=== PATIENT | male | born 1960 | race Caucasian/White ===

== ENCOUNTER 2017-09-09 18:30 | Inpatient (IN) | payer MEDICAID ==
[2017-09-09] MEDS ORDERED: Ondansetron 4 MG/2 ML SDV IVPUSH ONE (19:15)
[2017-09-09] MEDS: Sodium Chloride 0.9% 1,000 ML IV SCH ×2 (19:32→20:28)
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
[2017-09-09] MEDS: NS + KCl 20mEq/L 1,000 ML IV SCH ×2 (20:28→23:52)
[2017-09-09] MEDS ORDERED: Bacitracin Oint 1 GM U/D Packet TOP ONE (21:24)
[2017-09-09] MEDS ORDERED: Sodium Chloride 0.9% 1,000 ML IV SCH (21:45)
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
[2017-09-09] MEDS ORDERED: Norepinephrine 4 MG/4 ML SDV ONE (23:46)
[2017-09-10] MEDS: Dextrose 5%-0.9% NaCl 1,000 ML IV SCH ×2 (03:05→15:40)
[2017-09-10] MEDS ORDERED: Diazepam 5 MG Tab PO PRN (05:11)
[2017-09-10] MEDS: LORazepam 1 MG Tab PO PRN ×4 (09:40→14:30)
[2017-09-10] MEDS ORDERED: Thiamine 100 MG in Sodium Chloride 0.9% 50 ML IV ONE (10:00)
[2017-09-10] MEDS ORDERED: Acetaminophen 325 MG Tab PO PRN (13:04)
[2017-09-10] MEDS: Acetaminophen 325 MG Tab PO PRN ×2 (13:11→17:05)
[2017-09-10] MEDS: LORazepam 2 MG/ML SDV IV PRN ×6 (15:39→20:00)
[2017-09-10] MEDS: Nicotine 21 MG/24 Hr Patch TRDERM SCH (16:35)
--- NOTE | 2017-09-10 17:27 | PCM.PN ---
- General Info Date of Service: 09/10/17 Functional Status: Reports: Pain Controlled - Review of Systems HEENT: Reports: No Symptoms Pulmonary: Reports: No Symptoms Cardiovascular: Reports: No Symptoms Gastrointestinal: Reports: No Symptoms Genitourinary: Reports: No Symptoms Musculoskeletal: Reports: No Symptoms Skin: Reports: No Symptoms Neurological: Reports: Confusion, Gait Disturbance Psychiatric: Reports: Anxiety, Agitation - Patient Data Vitals - Most Recent: Last Vital Signs Temp 100.2 F 09/10/17 17:05 Pulse 119 H 09/10/17 17:00 Resp 12 09/10/17 17:00 BP 151/92 H 09/10/17 13:00 Pulse Ox 92 L 09/10/17 17:00 Weight - Most Recent: 191 lb 12.835 oz I&O - Last 24 Hours: Intake & Output 09/10/17 09/10/17 09/10/17 06:59 14:59 22:59 Intake Total 4260 240 Output Total 2100 Balance 2160 240 Lab Results Last 24 Hours: Laboratory Results - last 24 hr 09/09/17 09/09/17 09/09/17 Range/Units 19:05 19:05 19:05 WBC 15.1 H (4.5-11.0) K/uL RBC 5.19 (4.30-5.90) M/uL Hgb 15.7 H (12.0-15.0) g/dL Hct 43.7 (40.0-54.0) % MCV 84 (80-98) fL MCH 30 (27-31) pg MCHC 36 (32-36) % Plt Count 302 (150-400) K/uL Neut % (Auto) 80 H (36-66) % Lymph % (Auto) 10 L (24-44) % [place] % (Auto) 10 H (2-6) % Eos % (Auto) 0 L (2-4) % Baso % (Auto) 0 (0-1) % Sodium 135 L (140-148) mmol/L Potassium 3.1 L (3.6-5.2) mmol/L Chloride 95 L (100-108) mmol/L Carbon Dioxide 25 (21-32) mmol/L Anion Gap 18.1 H (5.0-14.0) mmol/L BUN 20 H (7-18) mg/dL Creatinine 1.9 H (0.8-1.3) mg/dL Est Cr Clr Drug Dosing 40.50 mL/min Estimated GFR (MDRD) 36 L (>60) Glucose 122 H (74-106) mg/dL Lactic Acid (0.4-2.0) mmol/L Calcium 7.8 L (8.5-10.1) mg/dL Total Bilirubin 0.6 (0.2-1.0) mg/dL AST 48 H (15-37) U/L ALT 42 (12-78) U/L Alkaline Phosphatase 113 (46-116) U/L Creatine Kinase (39-308) U/L Total Protein 6.3 L (6.4-8.2) g/dL Albumin 3.3 L (3.4-5.0) g/dL Globulin 3.0 (2.3-3.5) g/dL Albumin/Globulin Ratio 1.1 L (1.2-2.2) Lipase (73-393) U/L Urine Color Urine Appearance Urine pH (4.5-8.0) Ur Specific [employer] (1.008-1.030) Urine Protein (NEGATIVE) mg/dL Urine Glucose (UA) (NEGATIVE) mg/dL Urine Ketones (NEGATIVE) mg/dL Urine Occult Blood (NEGATIVE) Urine Nitrite (NEGAITVE) Urine Bilirubin (NEGATIVE) Urine Urobilinogen (NORMAL) mg/dL Ur Leukocyte Esterase (NEGATIVE) Urine RBC (0-5) Urine WBC (0-5) Ur Epithelial Cells Amorphous Sediment Urine Bacteria Urine Mucus Urine Opiates Screen (NEGATIVE) Ur Oxycodone Screen (NEGATIVE) Urine Methadone Screen (NEGATIVE) Ur Propoxyphene Screen (NEGATIVE) Ur Barbiturates Screen (NEGATIVE) Ur Tricyclics Screen (NEGATIVE) Ur Phencyclidine Scrn (NEGATIVE) Ur Amphetamine Screen (NEGATIVE) U Methamphetamines Scrn (NEGATIVE) Urine MDMA Screen (NEGATIVE) U Benzodiazepines Scrn (NEGATIVE) U Cocaine Metab Screen (NEGATIVE) U Marijuana (THC) Screen (NEGATIVE) Ethyl Alcohol 360 mg/dL 09/09/17 09/09/17 09/09/17 Range/Units 20:50 21:00 21:38 WBC (4.5-11.0) K/uL RBC (4.30-5.90) M/uL Hgb (12.0-15.0) g/dL Hct (40.0-54.0) % MCV (80-98) fL MCH (27-31) pg MCHC (32-36) % Plt Count (150-400) K/uL Neut % (Auto) (36-66) % Lymph % (Auto) (24-44) % [place] % (Auto) (2-6) % Eos % (Auto) (2-4) % Baso % (Auto) (0-1) % Sodium (140-148) mmol/L Potassium (3.6-5.2) mmol/L Chloride (100-108) mmol/L Carbon Dioxide (21-32) mmol/L Anion Gap (5.0-14.0) mmol/L BUN (7-18) mg/dL Creatinine (0.8-1.3) mg/dL Est Cr Clr Drug Dosing mL/min Estimated GFR (MDRD) (>60) Glucose (74-106) mg/dL Lactic Acid 4.7 H (0.4-2.0) mmol/L Calcium (8.5-10.1) mg/dL Total Bilirubin (0.2-1.0) mg/dL AST (15-37) U/L ALT (12-78) U/L Alkaline Phosphatase (46-116) U/L Creatine Kinase (39-308) U/L Total Protein (6.4-8.2) g/dL Albumin (3.4-5.0) g/dL Globulin (2.3-3.5) g/dL Albumin/Globulin Ratio (1.2-2.2) Lipase 215 (73-393) U/L Urine Color Yellow Urine Appearance Slightly cloudy Urine pH 6.0 (4.5-8.0) Ur Specific [employer] 1.020 (1.008-1.030) Urine Protein 30 H (NEGATIVE) mg/dL Urine Glucose (UA) Normal (NEGATIVE) mg/dL Urine Ketones Negative (NEGATIVE) mg/dL Urine Occult Blood Large (NEGATIVE) Urine Nitrite Negative (NEGAITVE) Urine Bilirubin Negative (NEGATIVE) Urine Urobilinogen Normal (NORMAL) mg/dL Ur Leukocyte Esterase Negative (NEGATIVE) Urine RBC 30-40 H (0-5) Urine WBC 0-5 (0-5) Ur Epithelial Cells Few Amorphous Sediment Few Urine Bacteria Moderate Urine Mucus Moderate Urine Opiates Screen (NEGATIVE) Ur Oxycodone Screen (NEGATIVE) Urine Methadone Screen (NEGATIVE) Ur Propoxyphene Screen (NEGATIVE) Ur Barbiturates Screen (NEGATIVE) Ur Tricyclics Screen (NEGATIVE) Ur Phencyclidine Scrn (NEGATIVE) Ur Amphetamine Screen (NEGATIVE) U Methamphetamines Scrn (NEGATIVE) Urine MDMA Screen (NEGATIVE) U Benzodiazepines Scrn (NEGATIVE) U Cocaine Metab Screen (NEGATIVE) U Marijuana (THC) Screen (NEGATIVE) Ethyl Alcohol mg/dL 09/09/17 09/09/17 09/10/17 Range/Units 21:38 22:27 04:05 WBC 8.8 (4.5-11.0) K/uL RBC 4.63 (4.30-5.90) M/uL Hgb 13.9 (12.0-15.0) g/dL Hct 39.4 L (40.0-54.0) % MCV 85 (80-98) fL MCH 30 (27-31) pg MCHC 35 (32-36) % Plt Count 232 (150-400) K/uL Neut % (Auto) 62 (36-66) % Lymph % (Auto) 23 L (24-44) % [place] % (Auto) 14 H (2-6) % Eos % (Auto) 1 L (2-4) % Baso % (Auto) 0 (0-1) % Sodium (140-148) mmol/L Potassium (3.6-5.2) mmol/L Chloride (100-108) mmol/L Carbon Dioxide (21-32) mmol/L Anion Gap (5.0-14.0) mmol/L BUN (7-18) mg/dL Creatinine (0.8-1.3) mg/dL Est Cr Clr Drug Dosing mL/min Estimated GFR (MDRD) (>60) Glucose (74-106) mg/dL Lactic Acid (0.4-2.0) mmol/L Calcium (8.5-10.1) mg/dL Total Bilirubin (0.2-1.0) mg/dL AST (15-37) U/L ALT (12-78) U/L Alkaline Phosphatase (46-116) U/L Creatine Kinase 515 H (39-308) U/L Total Protein (6.4-8.2) g/dL Albumin (3.4-5.0) g/dL Globulin (2.3-3.5) g/dL Albumin/Globulin Ratio (1.2-2.2) Lipase (73-393) U/L Urine Color Urine Appearance Urine pH (4.5-8.0) Ur Specific [employer] (1.008-1.030) Urine Protein (NEGATIVE) mg/dL Urine Glucose (UA) (NEGATIVE) mg/dL Urine Ketones (NEGATIVE) mg/dL Urine Occult Blood (NEGATIVE) Urine Nitrite (NEGAITVE) Urine Bilirubin (NEGATIVE) Urine Urobilinogen (NORMAL) mg/dL Ur Leukocyte Esterase (NEGATIVE) Urine RBC (0-5) Urine WBC (0-5) Ur Epithelial Cells Amorphous Sediment Urine Bacteria Urine Mucus Urine Opiates Screen Negative (NEGATIVE) Ur Oxycodone Screen Negative (NEGATIVE) Urine Methadone Screen Negative (NEGATIVE) Ur Propoxyphene Screen Negative (NEGATIVE) Ur Barbiturates Screen Negative (NEGATIVE) Ur Tricyclics Screen Positive H (NEGATIVE) Ur Phencyclidine Scrn Negative (NEGATIVE) Ur Amphetamine Screen Positive H (NEGATIVE) U Methamphetamines Scrn Positive H (NEGATIVE) Urine MDMA Screen Positive H (NEGATIVE) U Benzodiazepines Scrn Positive H (NEGATIVE) U Cocaine Metab Screen Negative (NEGATIVE) U Marijuana (THC) Screen Negative (NEGATIVE) Ethyl Alcohol mg/dL 09/10/17 09/10/17 09/10/17 Range/Units 04:05 05:15 05:16 WBC (4.5-11.0) K/uL RBC (4.30-5.90) M/uL Hgb (12.0-15.0) g/dL Hct (40.0-54.0) % MCV (80-98) fL MCH (27-31) pg MCHC (32-36) % Plt Count (150-400) K/uL Neut % (Auto) (36-66) % Lymph % (Auto) (24-44) % [place] % (Auto) (2-6) % Eos % (Auto) (2-4) % Baso % (Auto) (0-1) % Sodium 140 (140-148) mmol/L Potassium 3.4 L (3.6-5.2) mmol/L Chloride 105 (100-108) mmol/L Carbon Dioxide 21 (21-32) mmol/L Anion Gap 17.4 H (5.0-14.0) mmol/L BUN 14 (7-18) mg/dL Creatinine 1.0 (0.8-1.3) mg/dL Est Cr Clr Drug Dosing 76.95 mL/min Estimated GFR (MDRD) > 60 (>60) Glucose 92 (74-106) mg/dL Lactic Acid (0.4-2.0) mmol/L Calcium 6.9 L* (8.5-10.1) mg/dL Total Bilirubin (0.2-1.0) mg/dL AST 39 H (15-37) U/L ALT (12-78) U/L Alkaline Phosphatase 106 (46-116) U/L Creatine Kinase (39-308) U/L Total Protein (6.4-8.2) g/dL Albumin 2.7 L (3.4-5.0) g/dL Globulin (2.3-3.5) g/dL Albumin/Globulin Ratio (1.2-2.2) Lipase (73-393) U/L Urine Color Urine Appearance Urine pH (4.5-8.0) Ur Specific [employer] (1.008-1.030) Urine Protein (NEGATIVE) mg/dL Urine Glucose (UA) (NEGATIVE) mg/dL Urine Ketones (NEGATIVE) mg/dL Urine Occult Blood (NEGATIVE) Urine Nitrite (NEGAITVE) Urine Bilirubin (NEGATIVE) Urine Urobilinogen (NORMAL) mg/dL Ur Leukocyte Esterase (NEGATIVE) Urine RBC (0-5) Urine WBC (0-5) Ur Epithelial Cells Amorphous Sediment Urine Bacteria Urine Mucus Urine Opiates Screen (NEGATIVE) Ur Oxycodone Screen (NEGATIVE) Urine Methadone Screen (NEGATIVE) Ur Propoxyphene Screen (NEGATIVE) Ur Barbiturates Screen (NEGATIVE) Ur Tricyclics Screen (NEGATIVE) Ur Phencyclidine Scrn (NEGATIVE) Ur Amphetamine Screen (NEGATIVE) U Methamphetamines Scrn (NEGATIVE) Urine MDMA Screen (NEGATIVE) U Benzodiazepines Scrn (NEGATIVE) U Cocaine Metab Screen (NEGATIVE) U Marijuana (THC) Screen (NEGATIVE) Ethyl Alcohol mg/dL 18 09/10/17 Range/Units 05:18 12:57 WBC (4.5-11.0) K/uL RBC (4.30-5.90) M/uL Hgb (12.0-15.0) g/dL Hct (40.0-54.0) % MCV (80-98) fL MCH (27-31) pg MCHC (32-36) % Plt Count (150-400) K/uL Neut % (Auto) (36-66) % Lymph % (Auto) (24-44) % [place] % (Auto) (2-6) % Eos % (Auto) (2-4) % Baso % (Auto) (0-1) % Sodium (140-148) mmol/L Potassium (3.6-5.2) mmol/L Chloride (100-108) mmol/L Carbon Dioxide (21-32) mmol/L Anion Gap (5.0-14.0) mmol/L BUN (7-18) mg/dL Creatinine (0.8-1.3) mg/dL Est Cr Clr Drug Dosing mL/min Estimated GFR (MDRD) (>60) Glucose (74-106) mg/dL Lactic Acid 2.7 H (0.4-2.0) mmol/L Calcium (8.5-10.1) mg/dL Total Bilirubin 0.8 (0.2-1.0) mg/dL AST (15-37) U/L ALT (12-78) U/L Alkaline Phosphatase (46-116) U/L Creatine Kinase (39-308) U/L Total Protein 5.3 L (6.4-8.2) g/dL Albumin (3.4-5.0) g/dL Globulin (2.3-3.5) g/dL Albumin/Globulin Ratio (1.2-2.2) Lipase (73-393) U/L Urine Color Urine Appearance Urine pH (4.5-8.0) Ur Specific [employer] (1.008-1.030) Urine Protein (NEGATIVE) mg/dL Urine Glucose (UA) (NEGATIVE) mg/dL Urine Ketones (NEGATIVE) mg/dL Urine Occult Blood (NEGATIVE) Urine Nitrite (NEGAITVE) Urine Bilirubin (NEGATIVE) Urine Urobilinogen (NORMAL) mg/dL Ur Leukocyte Esterase (NEGATIVE) Urine RBC (0-5) Urine WBC (0-5) Ur Epithelial Cells Amorphous Sediment Urine Bacteria Urine Mucus Urine Opiates Screen (NEGATIVE) Ur Oxycodone Screen (NEGATIVE) Urine Methadone Screen (NEGATIVE) Ur Propoxyphene Screen (NEGATIVE) Ur Barbiturates Screen (NEGATIVE) Ur Tricyclics Screen (NEGATIVE) Ur Phencyclidine Scrn (NEGATIVE) Ur Amphetamine Screen (NEGATIVE) U Methamphetamines Scrn (NEGATIVE) Urine MDMA Screen (NEGATIVE) U Benzodiazepines Scrn (NEGATIVE) U Cocaine Metab Screen (NEGATIVE) U Marijuana (THC) Screen (NEGATIVE) Ethyl Alcohol mg/dL Med Orders - Current: Current Medications Acetaminophen (Tylenol) 650 mg PO Q4H PRN PRN Reason: Headache Last Admin: 09/10/17 17:05 Dose: 650 mg Diazepam (Valium.) 5 mg PO ONETIME PRN PRN Reason: Agitation Last Admin: 09/10/17 06:10 Dose: 5 mg Meropenem 1 gm/ Sodium (Chloride) 50 mls @ 100 mls/hr IV Q8H RAFAEL Last Admin: 09/10/17 13:31 Dose: 100 mls/hr Dextrose/Sodium Chloride (Dextrose 5%-Normal Saline) 1,000 mls @ 200 mls/hr IV ASDIRECTED RAFAEL Last Admin: 09/10/17 15:40 Dose: 200 mls/hr Lorazepam (Ativan) 0 mg PO ASDIRECTED PRN; Protocol PRN Reason: ETOH WITHDRAWAL Last Admin: 09/10/17 14:30 Dose: 4 mg Lorazepam (Ativan) 0 mg IV ASDIRECTED PRN; Protocol PRN Reason: ETOH WITHDRAWAL Last Admin: 09/10/17 16:59 Dose: 4 mg Lorazepam (Ativan) 0 mg IM ASDIRECTED PRN; Protocol PRN Reason: ETOH WITHDRAWAL Nicotine (Habitrol) 21 mg TRDERM DAILY [facility] Last Admin: 09/10/17 16:35 Dose: 21 mg Thiamine HCl (Vitamin B-1) 100 mg PO DAILY [facility] Stop: 09/12/17 09:01 Discontinued Medications Acetaminophen (Tylenol) 650 mg PO Q4H PRN PRN Reason: Headache Bacitracin (Bacitracin Oint 1 Gm) 1 dose TOP ONETIME ONE Stop: 09/09/17 21:25 Last Admin: 09/09/17 22:12 Dose: 1 dose Sodium Chloride (Normal Saline) 1,000 mls @ 999 mls/hr IV ASDIRECTED RAFAEL Last Admin: 09/09/17 20:28 Dose: 999 mls/hr Potassium Chloride/Sodium Chloride (Normal Saline With 20 Meq Kcl) 1,000 mls @ 500 mls/hr IV ASDIRECTED [facility] Last Admin: 09/09/17 23:52 Dose: 150 mls/hr Meropenem 1 gm/ Sodium (Chloride) 50 mls @ 100 mls/hr IV ONETIME ONE Stop: 09/09/17 21:54 Last Admin: 09/09/17 22:04 Dose: 100 mls/hr Sodium Chloride (Normal Saline) 1,000 mls @ 999 mls/hr IV ASDIRECTED [facility] Last Admin: 09/09/17 22:02 Dose: 999 mls/hr Dextrose/Water (Dextrose 5% In Water) Confirm Administered Dose 250 mls @ as directed .ROUTE .STK-MED ONE Stop: 09/09/17 23:47 Last Admin: 09/10/17 03:09 Dose: Not Given Thiamine HCl 100 mg/ Sodium (Chloride) 51 mls @ 200 mls/hr IV ONETIME ONE Stop: 09/10/17 10:15 Last Admin: 09/10/17 11:17 Dose: 200 mls/hr Norepinephrine Bitartrate (Levophed) Confirm Administered Dose 4 mg .ROUTE .STK- MED ONE Stop: 09/09/17 23:47 Last Admin: 09/10/17 08:24 Dose: Not Given Ondansetron HCl (Zofran) 4 mg IVPUSH ONETIME ONE Stop: 09/09/17 19:16 Last Admin: 09/09/17 19:32 Dose: 4 mg - Exam General: Moderate Distress HEENT: Pupils Equal, Pupils Reactive, EOMI, Mucous Membr. Moist/[place] Neck: Supple Lungs: Clear to Auscultation Cardiovascular: Regular Rate, Regular Rhythm GI/Abdominal Exam: Normal Bowel Sounds, Soft, Non-Tender, No Organomegaly, No Distention, No Abnormal Bruit, No Mass, Pelvis Stable Back Exam: Normal Inspection, Full Range of Motion Extremities: Normal Inspection, Normal Range of Motion, Non-Tender, No Pedal Edema, Normal Capillary Refill Skin: Warm, Dry, Intact Psy/Mental Status: Withdrawal Symptoms, Other (DT's) - Problem List Review Problem List Initiated/Reviewed/Updated: Yes - My Orders Last 24 Hours: My Active Orders 09/09/17 22:40 Height and Weight [RC] DAILY Resuscitation Status Routine 09/09/17 22:41 Patient Status [ADT] Routine Oxygen Therapy [RC] PRN VTE/DVT Education [RC] Per Unit Routine Vital Signs [RC] Q4H 09/09/17 22:44 Cardiac Monitoring [RC] Q6H Intake and Output [RC] QSHIFT 09/10/17 02:35 Dextrose 5%-0.9% NaCl [Dextrose 5%-Normal Saline] 1,000 ml IV ASDIRECTED 09/10/17 05:11 CIWAA Assessment [RC] Q1H Notify Provider [RC] PRN Diazepam [Valium] 5 mg PO ONETIME PRN 09/10/17 06:00 Meropenem [Merrem] 1 gm Sodium Chloride 0.9% [Normal Saline] 50 ml IV Q8H 09/10/17 09:37 LORazepam [Ativan] 0 mg IM ASDIRECTED PRN LORazepam [Ativan] 0 mg IV ASDIRECTED PRN LORazepam [Ativan] 0 mg PO ASDIRECTED PRN 09/10/17 13:05 Acetaminophen [Tylenol] 650 mg PO Q4H PRN 09/10/17 16:30 Nicotine [Habitrol] 21 mg TRDERM DAILY 09/10/17 Breakfast Regular Diet [DIET] 09/11/17 09:00 Thiamine [Vitamin B-1] 100 mg PO DAILY - Plan Plan:: Assessment/Plan: #1. Sepsis: unknown source continue with antibiotics #2. Hypotension: Caused by dehydration and drug overdose. #3. Alcoholism: 1 liter daily prior to admission #4. Drug overdose. Drug screen poss. for Alc, Meth, Benzos, MDMA, Amphetamines , #5. Bladder urine residual poss. secondary to drug overdose verses outlet obstruction #6. Depression: On bupropion and citalopram #7. Insomnia: On Temazepam #8. History of gout: On Allopurinol #9. History of chronic pain: On Gabapentin. #10. HLD: On Atorvastatin #11. Infecrtion of Mid finger right hand. #12. COPD: On albuterol HFA #13. GERD: One Omeprazole. #14. Dehydration: Will give fluids
[2017-09-10] MEDS: Diazepam 5 MG Tab PO PRN ×3 (17:53→20:07)
[2017-09-10] MEDS: LORazepam 2 MG/ML SDV IM PRN (20:37)
[2017-09-10] MEDS ORDERED: Haloperidol Lactate 5 MG/ML SDV ONE (20:53)
[2017-09-10] MEDS: Haloperidol Lactate 5 MG/ML SDV IM SCH (20:57)
[2017-09-10] MEDS ORDERED: Dextrose 5%-0.9% NaCl 1,000 ML IV SCH (23:41)
[2017-09-10] MEDS ORDERED: Furosemide 20 MG/2 ML VIAL IVPUSH ONE (23:43)
[2017-09-11] MEDS: LORazepam 2 MG/ML SDV IV PRN ×6 (00:10→06:37)
[2017-09-11] MEDS: Diazepam 5 MG Tab PO PRN ×5 (00:54→20:06)
[2017-09-11] MEDS ORDERED: Sodium Chloride 0.9% 100 ML IV STA (01:45)
[2017-09-11] MEDS ORDERED: Iopamidol 755 Mg/ML 100 ML Bottle IV STA (01:45)
[2017-09-11] MEDS: LORazepam 2 MG/ML SDV IM PRN ×3 (02:35→05:08)
[2017-09-11] MEDS: Haloperidol Lactate 5 MG/ML SDV IM SCH (04:40)
[2017-09-11] MEDS ORDERED: Haloperidol Lactate 5 MG/ML SDV IVPUSH PRN (08:38)
--- NOTE | 2017-09-11 09:28 | CR ---
Chest 1V Frontal INDICATION: tachapneic. hx of lung ca FINDINGS: Mixed interstitial and airspace opacities in both lungs, nonspecific. Malignancy is not exc luded. No pleural effusions. Shallow inspiration. Exam otherwise unremarkable.
[2017-09-11] MEDS: Gabapentin 400 MG Cap PO SCH ×3 (09:43→20:14)
[2017-09-11] MEDS: Nicotine 21 MG/24 Hr Patch TRDERM SCH (09:44)
[2017-09-11] MEDS: Thiamine 100 MG Tab PO SCH (09:44)
--- NOTE | 2017-09-11 10:20 | PCM.PN ---
- General Info Date of Service: 09/11/17 Functional Status: Reports: Pain Controlled, Tolerating Diet - Review of Systems Neurological: Reports: Confusion Systems Review Comment:: Difficulty with confusion and agitation throughout much of the day yesterday but doing better this morning. Blood pressures have normalized. Heart rate has been in the normal range. No complaints of abdominal pain. Cultures have all been negative. Still having some low-grade fevers. Weak from baseline but strength seems to be improving. - Patient Data Vitals - Most Recent: Last Vital Signs Temp 37.1 C 09/11/17 03:48 Pulse 79 09/11/17 08:00 Resp 24 H 09/11/17 08:00 BP 119/74 09/11/17 03:48 Pulse Ox 96 09/11/17 08:00 Weight - Most Recent: 81.647 kg I&O - Last 24 Hours: Intake & Output 09/10/17 09/11/17 09/11/17 22:59 06:59 14:59 Intake Total 1320 480 Output Total 850 4250 Balance 470 -3770 Lab Results Last 24 Hours: Laboratory Results - last 24 hr 09/10/17 Range/Units 12:57 Lactic Acid 2.7 H (0.4-2.0) mmol/L [place] Results Last 24 Hours: Microbiology 09/09/17 21:30 Urine Culture - Preliminary Urine, Bladder NO GROWTH AFTER 1 DAY 09/09/17 21:30 Aerobic Blood Culture - Preliminary Blood - Arm, Left NO GROWTH AFTER 1 DAY Anaerobic Blood Culture - Preliminary NO GROWTH AFTER 1 DAY 09/09/17 21:20 Aerobic Blood Culture - Preliminary Blood - Arm, Left NO GROWTH AFTER 1 DAY Anaerobic Blood Culture - Preliminary NO GROWTH AFTER 1 DAY Med Orders - Current: Current Medications Acetaminophen (Tylenol) 650 mg PO Q4H PRN PRN Reason: Headache Last Admin: 09/10/17 17:05 Dose: 650 mg Diazepam (Valium.) 5 mg PO ONETIME PRN PRN Reason: Agitation Last Admin: 09/10/17 06:10 Dose: 5 mg Diazepam (Valium.) 0 mg PO ASDIRECTED PRN; Protocol PRN Reason: ETOH WITHDRAWAL Last Admin: 09/11/17 09:43 Dose: 10 mg Gabapentin (Neurontin) 400 mg PO TID RAFAEL Last Admin: 09/11/17 09:43 Dose: 400 mg Haloperidol Lactate (Haldol) 2 mg IVPUSH Q2H PRN PRN Reason: Agitation Lorazepam (Ativan) 0 mg PO ASDIRECTED PRN; Protocol PRN Reason: ETOH WITHDRAWAL Last Admin: 09/10/17 14:30 Dose: 4 mg Lorazepam (Ativan) 0 mg IV ASDIRECTED PRN; Protocol PRN Reason: ETOH WITHDRAWAL Last Admin: 09/11/17 06:37 Dose: 4 mg Lorazepam (Ativan) 0 mg IM ASDIRECTED PRN; Protocol PRN Reason: ETOH WITHDRAWAL Last Admin: 09/11/17 05:08 Dose: 4 mg Melatonin (Melatonin) 9 mg PO BEDTIME RAFAEL Nicotine (Habitrol) 21 mg TRDERM DAILY [facility] Last Admin: 09/11/17 09:44 Dose: 21 mg Thiamine HCl (Vitamin B-1) 100 mg PO DAILY RAFAEL Stop: 09/12/17 09:01 Last Admin: 09/11/17 09:44 Dose: 100 mg Discontinued Medications Acetaminophen (Tylenol) 650 mg PO Q4H PRN PRN Reason: Headache Bacitracin (Bacitracin Oint 1 Gm) 1 dose TOP ONETIME ONE Stop: 09/09/17 21:25 Last Admin: 09/09/17 22:12 Dose: 1 dose Furosemide (Lasix) 20 mg IVPUSH ONETIME ONE Stop: 09/10/17 23:44 Last Admin: 09/10/17 23:56 Dose: 20 mg Haloperidol Lactate (Haldol) 5 mg IM Q8H RAFAEL Stop: 09/11/17 04:18 Last Admin: 09/11/17 04:40 Dose: 5 mg Haloperidol Lactate (Haldol) Confirm Administered Dose 5 mg .ROUTE .STK-MED ONE Stop: 09/10/17 20:54 Last Admin: 09/10/17 23:34 Dose: Not Given Sodium Chloride (Normal Saline) 1,000 mls @ 999 mls/hr IV ASDIRECTED RAFAEL Last Admin: 09/09/17 20:28 Dose: 999 mls/hr Potassium Chloride/Sodium Chloride (Normal Saline With 20 Meq Kcl) 1,000 mls @ 500 mls/hr IV ASDIRECTED RAFAEL Last Admin: 09/09/17 23:52 Dose: 150 mls/hr Meropenem 1 gm/ Sodium (Chloride) 50 mls @ 100 mls/hr IV ONETIME ONE Stop: 09/09/17 21:54 Last Admin: 09/09/17 22:04 Dose: 100 mls/hr Sodium Chloride (Normal Saline) 1,000 mls @ 999 mls/hr IV ASDIRECTED RAFAEL Last Admin: 09/09/17 22:02 Dose: 999 mls/hr Meropenem 1 gm/ Sodium (Chloride) 50 mls @ 100 mls/hr IV Q8H RAFAEL Last Admin: 09/11/17 05:11 Dose: 100 mls/hr Dextrose/Water (Dextrose 5% In Water) Confirm Administered Dose 250 mls @ as directed .ROUTE .STK-MED ONE Stop: 09/09/17 23:47 Last Admin: 09/10/17 03:09 Dose: Not Given Dextrose/Sodium Chloride (Dextrose 5%-Normal Saline) 1,000 mls @ 200 mls/hr IV ASDIRECTED RAFAEL Last Admin: 09/10/17 15:40 Dose: 200 mls/hr Thiamine HCl 100 mg/ Sodium (Chloride) 51 mls @ 200 mls/hr IV ONETIME ONE Stop: 09/10/17 10:15 Last Admin: 09/10/17 11:17 Dose: 200 mls/hr Dextrose/Sodium Chloride (Dextrose 5%-Normal Saline) 1,000 mls @ 25 mls/hr IV ASDIRECTED RAFAEL Sodium Chloride (Normal Saline) 100 mls @ 4 mls/sec IV ASDIRECTED STA Stop: 09/11/17 01:46 Last Admin: 09/11/17 02:09 Dose: 4 mls/sec Meropenem 1 gm/ Sodium (Chloride) 50 mls @ 100 mls/hr IV Q8H [facility] Meropenem 1 gm/ Sodium (Chloride) 100 mls @ 200 mls/hr IV ONETIME ONE Stop: 09/11/17 14:29 Iopamidol (Isovue-370 (76%)) 100 ml IV . DIRECTED STA Stop: 09/11/17 01:46 Last Admin: 09/11/17 02:09 Dose: 100 ml Norepinephrine Bitartrate (Levophed) Confirm Administered Dose 4 mg .ROUTE .STK- MED ONE Stop: 09/09/17 23:47 Last Admin: 09/10/17 08:24 Dose: Not Given Ondansetron HCl (Zofran) 4 mg IVPUSH ONETIME ONE Stop: 09/09/17 19:16 Last Admin: 09/09/17 19:32 Dose: 4 mg - Exam Quality Assessment: No: Supplemental Oxygen General: Alert, Cooperative, No Acute Distress Neck: Supple Lungs: Normal Respiratory Effort GI/Abdominal Exam: Soft, No Distention Extremities: No Pedal Edema Skin: Warm, Dry, Other (scab medial right 3rd finger) Psy/Mental Status: Alert, Normal Affect - Problem List Review Problem List Initiated/Reviewed/Updated: Yes - My Orders Last 24 Hours: My Active Orders 09/11/17 08:38 Haloperidol Lactate [Haldol] 2 mg IVPUSH Q2H PRN 09/11/17 09:00 Gabapentin [Neurontin] 400 mg PO TID 09/11/17 21:00 Melatonin 9 mg PO BEDTIME 09/12/17 05:00 BASIC METABOLIC PANEL,BMP [CHEM] Timed CBC W/O DIFF,HEMOGRAM [HEME] Timed (1) - Plan Plan:: ASSESSMENT AND PLAN - Hypotension with elevated lactic acid - initially concern for sepsis but there is no evidence for infection that has been identified. I suspect he was just very dehydrated from chronic alcoholism and poor intake other than his alcohol. Vital signs have stabilized. Cultures are all negative. -Saline lock IV -Discontinue antibiotics -Encourage oral intake Alcohol dependence with abuse and withdrawal - complicated by delirium and hallucinations. Seems to be improving at this time but has not completed the withdrawal process as of yet. -Continue diazepam protocol -Scheduled gabapentin -CIWA -Multivitamin supplementation -Encourage ongoing cessation Essential hypertension - blood pressure has now normalized but was recently on the low side and home medications will remain on hold. Maintenance issues - - DVT prophylaxis - mechanical - GI prophylaxis - PPI - Nutrition - regular diet - Davila catheter - placed for urinary retention and should be able to remove tomorrow with voiding trial Disposition - anticipate discharge back to [facility] tomorrow if stable overnight Marcelino Villalobos M.D.
[2017-09-11] MEDS ORDERED: Meropenem 1 GM in Sodium Chloride 0.9% 100 ML IV ONE (14:00)
[2017-09-11] MEDS ORDERED: Melatonin 3 MG Tab PO SCH (21:00)
[2017-09-11] MEDS: Albuterol/Ipratropium 3.0-0.5 MG/3 ML Neb Soln NEB SCH (22:07)
[2017-09-12] MEDS: Albuterol/Ipratropium 3.0-0.5 MG/3 ML Neb Soln NEB SCH ×2 (07:04→10:52)
[2017-09-12] MEDS ORDERED: Lisinopril 20 MG Tab PO SCH (09:00)
[2017-09-12] MEDS ORDERED: Potassium Chloride 20 MEQ Tab.ER PO ONE (09:00)
[2017-09-12 09:35] VITALS: BP 165/90
[2017-09-12] MEDS: Thiamine 100 MG Tab PO SCH (09:40)
[2017-09-12] MEDS: Nicotine 21 MG/24 Hr Patch TRDERM SCH (09:40)
[2017-09-12] MEDS: Gabapentin 400 MG Cap PO SCH (09:40)
--- NOTE | 2017-09-12 11:01 | PCM.DCSUM1 ---
Discharge Summary - Hospital Course Brief History: Marcos presented to the emergency room from a local alcohol treatment center with weakness and hypotension. Workup in the emergency room was concerning for sepsis with hypotension and elevated lactic acid level. He was admitted to the intensive care unit for further management - Discharge Data Discharge Date: 09/12/17 Discharge Disposition: DC/Tfer to Other 70 Condition: Fair - Discharge Diagnosis/Problem(s) (1) Alcohol dependence with acute alcoholic intoxication and delirium SNOMED Code(s): 518011776, 86206781, 954890797 ICD Code: F10.221 - ALCOHOL DEPENDENCE WITH INTOXICATION DELIRIUM Status: Acute Current Visit: Yes (2) Methamphetamine abuse SNOMED Code(s): 994577305 ICD Code: F15.10 - OTHER STIMULANT ABUSE, UNCOMPLICATED Status: Acute Current Visit: Yes (3) Lung cancer SNOMED Code(s): 495655673 ICD Code: C34.90 - MALIGNANT NEOPLASM OF UNSP PART OF UNSP BRONCHUS OR LUNG Status: Acute Current Visit: Yes Qualifiers: Laterality: unspecified laterality Lung location: unspecified part of lung Qualified Code(s): C34.90 - Malignant neoplasm of unspecified part of unspecified bronchus or lung - Patient Summary/Data Labs Pending at D/C: final results of blood cultures which are negative at the time of discharge Hospital Course: Marcos presented to the emergency room from [place] with weakness, confusion and hypotension. Workup in the emergency room revealed hypotension, elevated lactic acid level and low-grade fevers. There was concern for sepsis syndrome and he was empirically started on broad-spectrum antibiotics. He was given IV fluids. Cultures were obtained and he was admitted to the intensive care unit for further management. he had urinary retention and a Davila catheter was placed.He had reported a large ingestion of heroin but this was not confirmed with the tox screen. He was noted to have methamphetamine in his urine drug screen. Overnight following admission his hypotension persisted but did eventually improve with IV fluids. He had some low-grade fevers but never any high fevers. His mild confusion progressed throughout the night and the morning after admission he is very confused. He is hallucinating and we had a great deal of difficulty controlling behaviors. Eventually these did improve with benzodiazepines administered per the alcohol withdrawal protocol. On hospital day 2 he has been afebrile. His blood pressures have normalized. All of his cultures are negative. There is no evidence for infection that I can find. His chest x-ray was clear. Urinalysis was unremarkable her physical exam was unremarkable. I elected to discontinue the antibiotics at this point thinking that his hypotension and lactic acidosis were related to severe dehydration in the setting of acute on chronic alcohol dependence. He has remained stable since the antibiotics were discontinued. He has not had any fevers. His hallucinations have resolved but he has ongoing tremulousness as well as hypotension and some very mild confusion and would benefit from additional detoxification. His Davila catheter was removed on the morning of discharge. I suspect the urinary retention was a result of all of the substances in his body including the methamphetamine. Has been able to pass urine since the catheter was removed. I believe he is stable for transfer to detox at this time. As mentioned, he does still have ongoing evidence for alcohol withdrawal and would benefit from additional detoxification. He will be transferred to [place] for further detox. - Patient Instructions Diet: Regular Diet as Tolerated Activity: As Tolerated Showering/Bathing: May Shower Notify Provider of: Fever, Increased Pain, Nausea and/or Vomiting Other/Special Instructions: 1. You were in the hospital for management of hypotension and alcohol withdrawal with delirium. Initially there was concern for sepsis syndrome related to an infection. I suspect the low blood pressures were related to severe dehydration. Her blood pressures have improved with IV fluids and we have not found any evidence for infection. You do not need antibiotic treatment after hospital discharge. 2. There is ongoing evidence for alcohol withdrawal. You would benefit from additional detoxification to help manage the ongoing effects of alcohol withdrawal. You will be transferred to [place] for additional detoxification. 3. Continue your home medications as previously prescribed. - Discharge Plan Home Medications: Home Meds Lisinopril 40 mg PO DAILY 09/09/17 [History] Allopurinol [Zyloprim] 200 mg PO DAILY 09/12/17 [History] Citalopram Hydrobromide [Celexa] 40 mg PO DAILY 09/12/17 [History] Hydrochlorothiazide 25 mg PO DAILY 09/12/17 [History] atorvaSTATin Calcium [Atorvastatin Calcium] 10 mg PO BEDTIME 09/12/17 [History] Patient Handouts: Chemical Dependency, Alcohol Intoxication Referrals: PCP,None [Primary Care Provider] - - Discharge Summary/Plan Comment DC Time >30 min.: Yes (38 - d/c to detox) - Patient Data Vitals - Most Recent: Last Vital Signs Temp 36.3 C 09/12/17 09:00 Pulse 88 09/12/17 10:53 Resp 21 H 09/12/17 09:00 BP 165/90 H 09/12/17 09:00 Pulse Ox 94 L 09/12/17 09:00 Weight - Most Recent: 81.5 kg I&O - Last 24 hours: Intake & Output 09/11/17 09/12/17 09/12/17 22:59 06:59 14:59 Intake Total 480 250 Output Total 800 375 Balance -320 -125 Lab Results - Last 24 hrs: Laboratory Results - last 24 hr 09/12/17 09/12/17 Range/Units 04:18 04:18 WBC 7.7 (4.5-11.0) K/uL RBC 4.31 (4.30-5.90) M/uL Hgb 13.3 (12.0-15.0) g/dL Hct 38.6 L (40.0-54.0) % MCV 90 (80-98) fL MCH 31 (27-31) pg MCHC 35 (32-36) % Plt Count 178 (150-400) K/uL Sodium 141 (140-148) mmol/L Potassium 3.4 L (3.6-5.2) mmol/L Chloride 104 (100-108) mmol/L Carbon Dioxide 29 (21-32) mmol/L Anion Gap 11.4 (5.0-14.0) mmol/L BUN 14 (7-18) mg/dL Creatinine 0.9 (0.8-1.3) mg/dL Est Cr Clr Drug Dosing 85.82 mL/min Estimated GFR (MDRD) > 60 (>60) Glucose 92 (74-106) mg/dL Calcium 7.8 L (8.5-10.1) mg/dL RORY Results - Last 24 hrs: Microbiology 09/09/17 21:30 Urine Culture - Final Urine, Bladder NO GROWTH AFTER 2 DAYS 09/09/17 21:30 Aerobic Blood Culture - Preliminary Blood - Arm, Left NO GROWTH AFTER 2 DAYS Anaerobic Blood Culture - Preliminary NO GROWTH AFTER 2 DAYS 09/09/17 21:20 Aerobic Blood Culture - Preliminary Blood - Arm, Left NO GROWTH AFTER 2 DAYS Anaerobic Blood Culture - Preliminary NO GROWTH AFTER 2 DAYS Med Orders - Current: Current Medications Acetaminophen (Tylenol) 650 mg PO Q4H PRN PRN Reason: Headache Last Admin: 09/10/17 17:05 Dose: 650 mg Albuterol/Ipratropium (Duoneb 3.0-0.5 Mg/3 Ml) 3 ml NEB QIDRT [facility] Last Admin: 09/12/17 10:52 Dose: 3 ml Diazepam (Valium.) 5 mg PO ONETIME PRN PRN Reason: Agitation Last Admin: 09/10/17 06:10 Dose: 5 mg Diazepam (Valium.) 0 mg PO ASDIRECTED PRN; Protocol PRN Reason: ETOH WITHDRAWAL Last Admin: 09/11/17 20:06 Dose: 10 mg Gabapentin (Neurontin) 400 mg PO TID [facility] Last Admin: 09/12/17 09:40 Dose: 400 mg Haloperidol Lactate (Haldol) 2 mg IVPUSH Q2H PRN PRN Reason: Agitation Last Admin: 09/11/17 20:14 Dose: 2 mg Lisinopril (Prinivil) 40 mg PO DAILY [facility] Last Admin: 09/12/17 09:52 Dose: 40 mg Melatonin (Melatonin) 9 mg PO BEDTIME [facility] Last Admin: 09/11/17 22:00 Dose: 9 mg Nicotine (Habitrol) 21 mg TRDERM DAILY [facility] Last Admin: 09/12/17 09:40 Dose: 21 mg Discontinued Medications Acetaminophen (Tylenol) 650 mg PO Q4H PRN PRN Reason: Headache Bacitracin (Bacitracin Oint 1 Gm) 1 dose TOP ONETIME ONE Stop: 09/09/17 21:25 Last Admin: 09/09/17 22:12 Dose: 1 dose Furosemide (Lasix) 20 mg IVPUSH ONETIME ONE Stop: 09/10/17 23:44 Last Admin: 09/10/17 23:56 Dose: 20 mg Haloperidol Lactate (Haldol) 5 mg IM Q8H [facility] Stop: 09/11/17 04:18 Last Admin: 09/11/17 04:40 Dose: 5 mg Haloperidol Lactate (Haldol) Confirm Administered Dose 5 mg .ROUTE .STK-MED ONE Stop: 09/10/17 20:54 Last Admin: 09/10/17 23:34 Dose: Not Given Sodium Chloride (Normal Saline) 1,000 mls @ 999 mls/hr IV ASDIRECTED [facility] Last Admin: 09/09/17 20:28 Dose: 999 mls/hr Potassium Chloride/Sodium Chloride (Normal Saline With 20 Meq Kcl) 1,000 mls @ 500 mls/hr IV ASDIRECTED [facility] Last Admin: 09/09/17 23:52 Dose: 150 mls/hr Meropenem 1 gm/ Sodium (Chloride) 50 mls @ 100 mls/hr IV ONETIME ONE Stop: 09/09/17 21:54 Last Admin: 09/09/17 22:04 Dose: 100 mls/hr Sodium Chloride (Normal Saline) 1,000 mls @ 999 mls/hr IV ASDIRECTED [facility]FA[facility] Last Admin: 09/09/17 22:02 Dose: 999 mls/hr Meropenem 1 gm/ Sodium (Chloride) 50 mls @ 100 mls/hr IV Q8H [facility] Last Admin: 09/11/17 05:11 Dose: 100 mls/hr Dextrose/Water (Dextrose 5% In Water) Confirm Administered Dose 250 mls @ as directed .ROUTE .K-MED ONE Stop: 09/09/17 23:47 Last Admin: 09/10/17 03:09 Dose: Not Given Dextrose/Sodium Chloride (Dextrose 5%-Normal Saline) 1,000 mls @ 200 mls/hr IV ASDIRECTED [facility] Last Admin: 09/10/17 15:40 Dose: 200 mls/hr Thiamine HCl 100 mg/ Sodium (Chloride) 51 mls @ 200 mls/hr IV ONETIME ONE Stop: 09/10/17 10:15 Last Admin: 09/10/17 11:17 Dose: 200 mls/hr Dextrose/Sodium Chloride (Dextrose 5%-Normal Saline) 1,000 mls @ 25 mls/hr IV ASDIRECTED [facility]FA[facility] Last Admin: 09/11/17 21:20 Dose: 25 mls/hr Sodium Chloride (Normal Saline) 100 mls @ 4 mls/sec IV ASDIRECTED STA Stop: 09/11/17 01:46 Last Admin: 09/11/17 02:09 Dose: 4 mls/sec Meropenem 1 gm/ Sodium (Chloride) 50 mls @ 100 mls/hr IV Q8H [facility]FA[facility] Meropenem 1 gm/ Sodium (Chloride) 100 mls @ 200 mls/hr IV ONETIME ONE Stop: 09/11/17 14:29 Iopamidol (Isovue-370 (76%)) 100 ml IV . DIRECTED STA Stop: 09/11/17 01:46 Last Admin: 09/11/17 02:09 Dose: 100 ml Lorazepam (Ativan) 0 mg PO ASDIRECTED PRN; Protocol PRN Reason: ETOH WITHDRAWAL Last Admin: 09/10/17 14:30 Dose: 4 mg Lorazepam (Ativan) 0 mg IV ASDIRECTED PRN; Protocol PRN Reason: ETOH WITHDRAWAL Last Admin: 09/11/17 06:37 Dose: 4 mg Lorazepam (Ativan) 0 mg IM ASDIRECTED PRN; Protocol PRN Reason: ETOH WITHDRAWAL Last Admin: 09/11/17 05:08 Dose: 4 mg Norepinephrine Bitartrate (Levophed) Confirm Administered Dose 4 mg .ROUTE .STK- MED ONE Stop: 09/09/17 23:47 Last Admin: 09/10/17 08:24 Dose: Not Given Ondansetron HCl (Zofran) 4 mg IVPUSH ONETIME ONE Stop: 09/09/17 19:16 Last Admin: 09/09/17 19:32 Dose: 4 mg Potassium Chloride (Klor-Con M20) 40 meq PO ONETIME ONE Stop: 09/12/17 09:01 Last Admin: 09/12/17 09:52 Dose: 40 meq Thiamine HCl (Vitamin B-1) 100 mg PO DAILY [facility] Stop: 09/12/17 09:01 Last Admin: 09/12/17 09:40 Dose: 100 mg - Exam Quality Assessment: Denies: Supplemental Oxygen General: Reports: Alert, Cooperative, No Acute Distress. Denies: Oriented Neck: Reports: Supple Lungs: Reports: Normal Respiratory Effort Cardiovascular: Reports: Regular Rate, Regular Rhythm GI/Abdominal Exam: No Distention Skin: Reports: Warm, Dry Neurological: Reports: Other (tremor) Psy/Mental Status: Reports: Alert, Anxious
== END 2017-09-12 12:42 | disposition other institution (70) | DRG 315 ==
LOC: JP.ED 18:30 → JP.ICU 22:41
PROVIDERS: ADMIT Internal Medicine; ATTEND Internal Medicine
DX: I95.9 Hypotension, unspecified (principal); F10.221 Alcohol dependence with intoxication delirium; C34.90 Malignant neoplasm of unspecified part of unspecified bronchus or lung; F10.231 Alcohol dependence with withdrawal delirium; E86.0 Dehydration; F15.10 Other stimulant abuse, uncomplicated; R33.9 Retention of urine, unspecified; I10 Essential (primary) hypertension; F32.9 Major depressive disorder, single episode, unspecified; G89.29 Other chronic pain; E78.5 Hyperlipidemia, unspecified; G47.00 Insomnia, unspecified; K21.9 Gastro-esophageal reflux disease without esophagitis; R53.1 Weakness; I49.9 Cardiac arrhythmia, unspecified; F17.200 Nicotine dependence, unspecified, uncomplicated; R07.81 Pleurodynia; R26.9 Unspecified abnormalities of gait and mobility; M10.9 Gout, unspecified; J44.9 Chronic obstructive pulmonary disease, unspecified; Z79.899 Other long term (current) drug therapy
CPT/HCPCS: 36415; 51702; 51798; 71045; 71045-26; 71275; 80048; 80053; 80305; 81001; 82040; 82247; 82550; 83605; 83690; 84075; 84155; 84450; 85025; 85027; 87040; 87086; 94640; 96361; 96365; 96375; 99285-25; A9270-GY; G0480; J1630; J1940; J2060; J2185; J2405; J3411; J3480; J7030; J7040; J7050; J7620; Q9967